=== PATIENT | female | born 1955 | race Caucasian/White ===

== ENCOUNTER 2019-04-28 07:28 | Outpatient (CLI) | payer OTHER ==
[~2019-04-28 07:28] MED LIST: INDOCIN25 MG PO; INDOMETHACIN50 MG PO
== END 2019-04-28 07:38 | disposition home or self-care (01) ==
LOC: RAD 07:28
DX: I10 Essential (primary) hypertension (principal)

== ENCOUNTER 2023-10-01 09:40 | Emergency (ER) | payer OTHER ==
[~2023-10-01] VITALS: Ht 160 cm; Wt 89.8 kg
[2023-10-01] MEDS ORDERED: HYDROCHLOROTH12.5 MG PO (09:56)
[2023-10-01] MEDS ORDERED: COZAAR100 MG PO (09:56)
[2023-10-01] MEDS ORDERED: TOPROL XL25 M1 (09:56)
[2023-10-01] MEDS ORDERED: SYNTHROID50 MCG PO (09:56)
[2023-10-01 10:37] LABS: HEMATOCRIT 34.8 % (36.0-45.00); HEMOGLOBIN 11.1 g/dL (12.0-15.00); MEAN CORPUSCULAR HEMOGLOBIN 25.9 pg (27.00-32.0); MEAN CORPUSCULAR HGB CONC 31.9 g/dl (32.0-36.0); PLATELET COUNT 543 K/uL (150-450); RED BLOOD COUNT 4.29 M/uL (4.00-6.00); RED CELL DISTRIBUTION WIDTH 18.3 % (11.5-14.5)
[2023-10-01] MEDS ORDERED: TUSNEL LIQUID178 ML PO (10:59)
[2023-10-01] MEDS ORDERED: ZITHROMAX500 MG PO (10:59)
== END 2023-10-01 11:12 | disposition home or self-care (01) ==
LOC: ER 09:40
PROVIDERS: General Practice
DX: J06.9 Acute upper respiratory infection, unspecified (principal); Z88.0 Allergy status to penicillin
CPT/HCPCS: 36415; 96372; 99284; J1885

== ENCOUNTER 2024-07-10 09:37 | Emergency (ER) | payer OTHER ==
[~2024-07-10] VITALS: Ht 162.6 cm; Wt 92.5 kg
[~2024-07-10 09:37] MED LIST changes: +COZAAR100 MG PO; +HYDROCHLOROTH12.5 MG PO; +SYNTHROID50 MCG PO; +TOPROL XL25 M1; +TUSNEL LIQUID178 ML PO; +ZITHROMAX500 MG PO
[2024-07-10 11:00] LABS: HEMOGLOBIN 11.8 g/dL (12.0-15.00); MEAN CELL VOLUME 81.5 fL (80.00-100.00); MEAN CORPUSCULAR HEMOGLOBIN 26.8 pg (27.00-32.0); MEAN CORPUSCULAR HGB CONC 32.9 g/dl (32.0-36.0); PLATELET COUNT 373 K/uL (150-450); RED BLOOD COUNT 4.42 M/uL (4.00-6.00); RED CELL DISTRIBUTION WIDTH 19.4 % (11.5-14.5)
== END 2024-07-10 12:22 | disposition home or self-care (01) ==
LOC: ER 09:39
DX: U07.1 COVID-19 (principal); R53.81 Other malaise; I10 Essential (primary) hypertension; E03.8 Other specified hypothyroidism; Z88.0 Allergy status to penicillin